=== PATIENT | female | born 1960 | race Caucasian/White ===

== ENCOUNTER 2017-04-13 14:27 | Emergency (ER) | payer SELFPAY ==
[2017-04-13 14:42] VITALS: BP 147/81; TEMP 96.7; O2SAT 100
[2017-04-13] MEDS ORDERED: IBUPROFEN 200 MG TAB PO ONE (14:47)
--- NOTE | 2017-04-13 14:50 | ED.PDOC ---
History of Present Illness - General Chief Complaint: Trauma Stated Complaint: left shoulder,elbow,wrist and ankle pain Time Seen by Provider: 04/13/17 14:41 Source: patient Exam Limitations: no limitations Additional Information: MISSED THE LAST STEP LEAVING THE HOUSE. FELL ONTO GROUND. C/O PAIN TO L ARM AND ANKLE. - History of Present Illness Timing/Duration: other - JUST [employer] Severity: mild Improving Factors: nothing Worsening Factors: movement Associated Symptoms: denies symptoms Allergies/Adverse Reactions: Allergies NO KNOWN ALLERGY Allergy (Unverified 03/23/13 11:42) Home Medications: Ambulatory Orders Omeprazole [Prilosec] 20 mg PO DAILY 03/23/13 Acetaminophen W/ Codeine [Tylenol W/ CODEINE #3] 1 ea PO Q6HR PRN #24 04/13/17 Review of Systems - Review of Systems Constitutional: States: no symptoms reported EENTM: Denies: blurred vision Respiratory: Denies: cough, short of breath Cardiology: Denies: chest pain, palpitations, syncope Gastrointestinal/Abdominal: States: no symptoms reported Musculoskeletal: Denies: back pain, neck pain Skin: States: other - NO ABRASIONS, ECCHYMOSIS Neurological: Denies: headache, numbness, weakness Endocrine: States: no symptoms reported Hematologic/Lymphatic: States: no symptoms reported Past Medical History (General) - Patient Medical History Hx Congestive Heart Failure: No Hx Diabetes: No Hx Gastroesophageal Reflux: Yes Surgical History: appendectomy, cholecystectomy - Vaccination History Hx Influenza Vaccination: No Hx Pneumococcal Vaccination: No - Social History Hx Tobacco Use: Yes Family Medical History - Family History Mother Family History: Unknown Living Status: Unknown Physical Exam - Physical Exam General Appearance: Alert, No apparent distress Eye Exam: bilateral normal Ears, Nose, Throat: normal ENT inspection, other - NC/AT Neck: non-tender, full range of motion Respiratory: chest non-tender, lungs clear, normal breath sounds Cardiovascular/Chest: regular rate, rhythm, no murmur Peripheral Pulses: radial,left: 2+ Gastrointestinal/Abdominal: normal bowel sounds, non tender, soft, no organomegaly Back Exam: normal inspection, no CVA tenderness, other - NO C/T/L SPINE TTP Extremity: other - MILD TTP LATERAL EPICONDYLE L ELBOW, NO SWELLING, NO DEFORMITY, NVI. LIMITED ROM, NO SHOULDER TTP/DEFORMITY, ANKEL WITH MILD SWELLING LAT MALEOLUS, MILD TTP, PAIN WITH INT ROTATION. NVI. Neurologic: no motor/sensory deficits, alert, normal mood/affect Skin Exam: normal color, warm/dry, rash - NO ABRASIONS/ECCHYMOSIS Lymphatic: no adenopathy Progress - EKG/XRAY/CT XRAY: elbow - POST FAT PAD, SMALL CORTICAL DEFECT RADIAL HEAD Procedures - Splinting Left Arm Hand-Made Type: orthoglass Splint: LONG ARM POSTERIOR Pre-Proc Neuro Vasc Exam: normal Post-Proc Neuro Vasc Exam: normal Progress: APPLIED BY NURSING, CHECKED BY PHYSICIAN Departure - Departure Clinical Impression: Radial head fracture, closed Qualifiers: Encounter type: initial encounter Fracture alignment: nondisplaced Laterality: left Qualified Code(s): S52.125A - Nondisplaced fracture of head of left radius , initial encounter for closed fracture Time of Disposition: 15:52 Disposition: Discharge to Home or Self Care Condition: Good Departure Forms: ED Discharge - Pt. Copy, Patient Portal Self Enrollment Instructions: DI for Trauma, DI for Forearm Fracture Referrals: SHANNAN BROWN IV, NP [Primary Care Provider] - 1-2 Weeks Arturo Mane MD [Active Staff] - 1-2 Weeks Prescriptions: Acetaminophen W/ Codeine [Tylenol W/ CODEINE #3] 1 ea PO Q6HR PRN #24 PRN Reason: Pain Home Medications: Ambulatory Orders Omeprazole [Prilosec] 20 mg PO DAILY 03/23/13 Acetaminophen W/ Codeine [Tylenol W/ CODEINE #3] 1 ea PO Q6HR PRN #24 04/13/17
--- NOTE | 2017-04-13 15:14 | RAD ---
PROCEDURE: Ankle,Left 3 Views CLINICAL HISTORY: FALL WITH PAIN INDICATION: Same as above COMPARISON: None . TECHNIQUE: 3.0 Views of the left ankle were done. FINDINGS: There is no evidence of acute fractures or dislocation involving the left ankle. The soft tissues are radiographically unremarkable. There is a small plantar calcaneal spur There is no evidence of periosteal reactions or suspicious bony lesions. The talar dome and the subtalar joints are unremarkable. The joint spaces are relatively well-maintained. There is no visualization of any radiopaque foreign bodies. IMPRESSION: Negative for acute bony trauma involving the left ankle Place of interpretation: Teleradiology. Electronically signed by: Gabo Anderson MD 04/13/2017 3:12 PM [facility] Workstation: [id number]
--- NOTE | 2017-04-13 15:15 | RAD ---
PROCEDURE: Elbow, left 2 Views CLINICAL HISTORY: FALL WITH PAIN INDICATION: Same as above COMPARISON: None . TECHNIQUE: 3.0 Views of the left elbow joint were done. FINDINGS: On the lateral projection there is mild cortical offset in the anterior aspect of the subcapital region and may represent a nondisplaced fracture in this region of the left proximal radius The soft tissues are radiographically unremarkable. There is no visualization of any radiopaque foreign bodies in the evaluated soft tissues. IMPRESSION: On the lateral projection there is mild cortical offset in the anterior aspect of the subcapital region and may represent a nondisplaced fracture in this region of the left proximal radius Place of interpretation: [id number]. Electronically signed by: Gabo Anderson MD 04/13/2017 3:14 PM [facility] Workstation: [id number]
== END 2017-04-13 16:35 | disposition home or self-care (01) ==
LOC: ER 14:27
DX: S52.125A Nondisplaced fracture of head of left radius, initial encounter for closed fracture (principal); Z87.891 Personal history of nicotine dependence; W10.9XXA Fall (on) (from) unspecified stairs and steps, initial encounter; Y92.008 Other place in unspecified non-institutional (private) residence as the place of occurrence of the external cause

== ENCOUNTER → 2017-04-18 | Outpatient (CLI) | payer OTHER ==
--- NOTE | 2017-04-19 07:56 | RAD ---
EXAM DESCRIPTION: Elbow,Left 3 Views CLINICAL HISTORY: PN IN ELBOW COMPARISON: April 13, 2017. Impression: 3 views of the left elbow with suboptimal positioning. Previously noted offset of the subcapital radial neck seen on the April 13, 2017 study is not demonstrated on today's study though may be limited due to the positioning. CT or MRI is recommended for further evaluation if there is clinical discrepancy for an acute elbow fracture. Electronically signed by: Todd Dugan MD 04/19/2017 7:55 AM [facility]
== END | disposition home or self-care (01) ==
LOC: RAD 08:06
PROVIDERS: ATTEND Orthopaedic Surgery
DX: M25.522 Pain in left elbow (principal)

== ENCOUNTER → 2017-04-29 | Outpatient (CLI) | payer OTHER ==
--- NOTE | 2017-04-29 13:03 | RAD ---
EXAM DESCRIPTION: Elbow,Left 3 Views CLINICAL HISTORY: FX OF RADIAL NECK COMPARISON: April 18, 2017 IMPRESSION: 3 views of the left elbow again demonstrate mild nondisplaced fracture involving the radial neck without obvious extension to the articular surface. No significant interval periosteal reaction or bridging callus formation is seen. The fracture does appear more indistinct compared to exam from April 13, 2017 suggesting healing. Slight elevation in the anterior distal humerus fat pad suggests small joint effusion is stable from previous. Electronically signed by: Vincent Christianson MD 04/29/2017 1:02 PM [facility]
== END | disposition home or self-care (01) ==
LOC: RAD 07:57
PROVIDERS: ATTEND Orthopaedic Surgery
DX: S52.101D Unspecified fracture of upper end of right radius, subsequent encounter for closed fracture with routine healing (principal)

== ENCOUNTER → 2017-05-23 | Outpatient (CLI) | payer OTHER ==
--- NOTE | 2017-05-24 08:49 | RAD ---
EXAM DESCRIPTION: Elbow,Left 3 Views CLINICAL HISTORY: FX OF RADIAL NECK COMPARISON: None. TECHNIQUE: 3 views left FINDINGS: I see no bone joint or soft tissue abnormality. IMPRESSION: Normal left elbow Electronically signed by: Dion Campbell MD 05/24/2017 8:48 AM [facility]
== END | disposition home or self-care (01) ==
LOC: RAD 07:41
PROVIDERS: ATTEND Orthopaedic Surgery
DX: S52.101D Unspecified fracture of upper end of right radius, subsequent encounter for closed fracture with routine healing (principal)

== ENCOUNTER → 2017-06-13 | Outpatient (CLI) | payer OTHER ==
--- NOTE | 2017-06-15 13:29 | RAD ---
Three views of the left elbow. INDICATION: Radial neck fracture. COMPARISON: Left elbow radiograph from 05/23/2017 and 04/13/2017. FINDINGS: There is minimal residual deformity of the left radial head. No acute fracture, dislocation or suspicious osseous lesions identified. No definite effusion identified. Bone mineralization appears within normal limits. Joint spaces appear preserved. Soft tissues have a normal radiographic appearance. IMPRESSION: Residual deformity of the left radial head compatible with healed left radial head fracture. No new acute osseous normality identified. Electronically signed by: Jesus Bower MD 06/15/2017 1:28 PM [facility] Workstation: [id number]
== END ==
LOC: RAD 07:42
PROVIDERS: ATTEND Orthopaedic Surgery
DX: S52.102D Unspecified fracture of upper end of left radius, subsequent encounter for closed fracture with routine healing (principal)

== ENCOUNTER → 2017-07-29 | Outpatient (CLI) | payer OTHER ==
--- NOTE | 2017-07-29 13:11 | RAD ---
EXAM DESCRIPTION: Elbow,Left 3 Views CLINICAL HISTORY: UNSPECIFIED FX OF UPPER END OF RADIUS, LEFT COMPARISON: 13 June 2017 TECHNIQUE: 3 views left FINDINGS: The previously observed left radial head fracture is no longer identified. No fracturing is detected. No joint effusion is seen. IMPRESSION: Healed radial head fracture. The fracture is no longer readily evident Electronically signed by: Dion Campbell MD 07/29/2017 1:10 PM CDT
== END ==
LOC: RAD 07:28
PROVIDERS: ATTEND Orthopaedic Surgery
DX: S52.102D Unspecified fracture of upper end of left radius, subsequent encounter for closed fracture with routine healing (principal)

== ENCOUNTER → 2018-03-25 | Outpatient (CLI) | payer OTHER | LOC: MAMMO 08:40 | PROVIDERS: ATTEND Family Medicine | DX: Z12.31 Encounter for screening mammogram for malignant neoplasm of breast (principal) ==